=== PATIENT | female | born 2000 | race Caucasian/White ===

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

== ENCOUNTER 2021-03-09 11:52 | Outpatient (REF) | payer BC, SELFPAY ==
[2021-03-09 14:00] LABS: Abs Immature Grans 0.12 10^3/uL (0.0-0.06); Absolute Eosinophil Count 0.15 10^3/uL (0.0-0.7); Absolute Lymphocyte Count 1.96 10^3/uL (1.2-3.4); Basophils % 0.3; Eosinophils % 1.3; HCT 40.3 % (36.0-46.0); HGB 12.6 g/dL (11.2-15.7); Lymphocytes % 16.8; MCH 26.7 pg (27.0-33.0); MCHC 31.3 % (32.0-36.0); MCV 85.4 fL (80-95); MPV 11.5 fL (8.0-11.0); Neutrophils % 74.6; Nucleated RBC 0 %; Platelet Count 256 10^3/uL (130-400); RBC 4.72 10^6/uL (3.93-5.22); RDW 13.3 % (11.7-14.6); RDW-SD 42.2 fL; WBC 11.69 10^3/uL (4.4-10.8)
[2021-03-09 14:01] LABS: Absolute Basophil Count 0.04 10^3/uL (0.0-0.2); Absolute Neutrophil Count 8.72 10^3/uL (1.2-6.7)
[2021-03-09 14:08] LABS: Mono Screening Negative (Negative)
[2021-03-10 15:45] LABS: COVID-19 RT-PCR UVMMC Result Negative (Negative)
== END 2021-03-09 11:53 | disposition home or self-care (01) ==
LOC: LBN 11:52
PROVIDERS: PCP Nurse Practitioner Pediatrics; Visit Provider Family Medicine
DX: J02.9 Acute pharyngitis, unspecified (principal); Z20.822 Contact with and (suspected) exposure to COVID-19
CPT/HCPCS: U0003; 85025; 86308

== ENCOUNTER 2021-10-16 18:31 | Outpatient (REF) | payer BC, SELFPAY ==
[2021-10-18 14:48] LABS: COVID-19 RT-PCR UVMMC Result Negative (Negative)
== END 2021-10-16 18:32 | disposition home or self-care (01) ==
LOC: LBN 18:31
PROVIDERS: PCP Nurse Practitioner Pediatrics; Visit Provider Physician Assistant Medical
DX: Z20.822 Contact with and (suspected) exposure to COVID-19 (principal); J06.9 Acute upper respiratory infection, unspecified
CPT/HCPCS: U0003

== ENCOUNTER 2021-10-28 17:48 | Outpatient (REF) | payer BC, SELFPAY ==
[2021-10-30 10:39] LABS: COVID-19 RT-PCR UVMMC Result Negative (Negative)
== END 2021-10-28 17:49 | disposition home or self-care (01) ==
LOC: LBN 17:48
PROVIDERS: PCP Nurse Practitioner Pediatrics; Visit Provider Physician Assistant Medical
DX: Z20.822 Contact with and (suspected) exposure to COVID-19 (principal); R05.8 Other specified cough
CPT/HCPCS: U0003

== ENCOUNTER → 2023-08-07 12:40 | Outpatient (CLI) | payer OTHER, SELFPAY ==
--- NOTE | 2023-08-07 | DI.RAD_ITS ---
Exam(s) XR SHOULDER LT COMPLETE 2+V EXAM: XR SHOULDER LT COMPLETE 2+V CLINICAL HISTORY: LT SHOULDER PAIN, M25.512. TECHNIQUE: 2D digital imaging was performed. Three views. COMPARISON: No exams were available for comparison FINDINGS: BONES: No acute fracture is present. No bony destructive lesion is seen. JOINTS: No dislocation present. AC joint is not widened. SOFT TISSUE: Normal. IMPRESSION: Unremarkable radiographs of the left shoulder. DATA REPOSITORY: RADIATION DOSE DELIVERED:
== END ==
PROVIDERS: PCP Nurse Practitioner Family; Visit Provider Nurse Practitioner Family
DX: M25.512 Pain in left shoulder (principal)
CPT/HCPCS: 73030

== ENCOUNTER 2024-01-05 21:59 | Outpatient (REF) | payer OTHER, SELFPAY ==
--- NOTE | 2024-01-05 09:30 | PAPFT_PTH ---
PATIENT: Cyndi Morgan LOC: [facility] U#:[id number] AGE/SX: 23/F ROOM: RE01/05/[address]: Sami Gillette DNP : 2000 BED: DIS: 01/05/2024 SPEC #: [id number] RECD: 01/08/24 12:00 STATUS: BOLIVAR ANDERSON #: [id number] LARRY: 01/05/24 09:[address]: Sami Correa DEPT: [facility] Cytology RECD BY: Estrellita Trotter Tissues: 1 - CX/ENDOCX FOR PAP SMEARS Procedures: PAP THIN PREP/[facility] Screening Comments: [id number]
[2024-01-05 21:18] LABS: HCT 42.1 % (36.0-46.0); HGB 13.5 g/dL (11.2-15.7); MCH 28.4 pg (27.0-33.0); MCHC 32.1 % (32.0-36.0); MCV 88 fL (80-95); MPV 11.3 fL (8.0-11.0); Platelet Count 234 10^3/uL (130-400); RBC 4.76 10^6/uL (3.93-5.22); RDW 13.1 % (11.7-14.6); RDW-SD 42.7 fL; WBC 6.84 10^3/uL (4.4-10.8)
[2024-01-05 21:28] LABS: ALT 62 U/L (14-59); AST 26 U/L (15-37); Albumin 4.5 g/dL (3.4-5.0); Alkaline Phosphatase 68 U/L (46-116); Anion Gap 14.8 mmol/L (3-11); BUN 12 mg/dL (7-18); Bilirubin, Total 0.87 mg/dL (0.2-1.0); CO2 23.2 mmol/L (21.0-32.0); CREATININE 0.8 mg/dL (0.55-1.02); Calcium 9.3 mg/dL (8.5-10.1); Calculated LDL 68 mg/dL (<100); Chloride 104 mmol/L (98-107); Cholesterol 147 mg/dL (<200); Estimated GFR 106.77 (mL/min/1.73m2); Glucose 99 mg/dL (74-106); HDL Cholesterol 32 mg/dL (40-60); Potassium 4.2 mmol/L (3.5-5.1); Sodium 142 mmol/L (136-145); Total Protein 7.7 g/dL (6.4-8.2); Triglyceride 235 mg/dL (<150)
[2024-01-07 12:10] LABS: HIV-1/2 Ag & Ab Screen Negative (Negative)
[2024-01-08 10:06] LABS: Hepatitis C Ab w Rflx HCV PCR Negative (Negative)
[2024-01-09 12:07] LABS: IgA 55 mg/dL (85-499); Interpretation (See Note); Tissue Transglutaminase IgA <4.0 CU (<20.0)
== END 2024-01-05 22:00 | disposition home or self-care (01) ==
LOC: LBN 21:59
PROVIDERS: PCP Nurse Practitioner Family; Visit Provider Nurse Practitioner Family
DX: R19.7 Diarrhea, unspecified (principal); Z11.59 Encounter for screening for other viral diseases; Z13.220 Encounter for screening for lipoid disorders; Z11.4 Encounter for screening for human immunodeficiency virus [HIV]
CPT/HCPCS: 80053; 80061; 82784; 83516; 85027; 86803; 87389; 88142

== ENCOUNTER 2024-03-22 10:33 | Day surgery (SDC) | payer OTHER, SELFPAY ==
--- NOTE | 2024-03-21 15:31 | ENDO_ITS ---
Date of service: 03/22/24 Time of Service: 12:30 Endoscopy Report DATE OF PROCEDURE: 03/22/24 PRE-OP DIAGNOSIS: Gluten sensitivity POST-OP DIAGNOSIS: same ANESTHESIA TYPE: General:No Airway ESTIMATED BLOOD LOSS: 1 PATHOLOGY: other COMPLICATIONS: None DISPOSITION: observation PROCEDURE DESCRIPTION: Informed consent was obtained from the pt; explaining the benefits and Risks: bleeding, infections, perforations {which could require surgery or antibiotics and prolonged hospital stay}, or ostomy, and complications of anaesthesia, yanet aspiration). The patient was take to the procedure room and placed in a supine position. Monitors were applied and a time out was done. The patients name, date of , procedure type, allergies to medications and metal in their body was reviewed. A bite block was placed and the patient was sedated. Once sedated and comfortable an Olympus gastroscope (see RN notes for scope #) was advanced through the oropharynx which was grossly normal, and passed into the esophagus. The proximal and mid-esophagus were normal. The distal esophagus does not show any: dilation/strictures/varices/erosions or ulcers/bleeding noted. The scope was advanced into the stomach and through the pylorus into the proximal jejunum. A bx is taken for celiac Dx . The duodenum was noted to be normal. Biopsies were done of the duodenal bulb.. The scope was retracted back into the stomach and biopsies were taken of the antrum. There were no gastritis/gastropathy/ ulcers/masses noted. The scope was retroflexed. The cardia and fundus were noted to be normal. There is no hiatal hernia noted. The scope was retracted back into the esophagus and biopsies were done of the GE junction (in all 4 quadrants) and distal esophagus (2cm above the GE junction) to rule out Morrison's. All specimens are retrieved and no bleeding was noted. The Z line was regular. The GE junction was at 38 cm. The scope was removed and the patient was woken up and taken back to [facility] in stable condition.
--- NOTE | 2024-03-21 15:32 | PDOC.DSDIS_ITS ---
Date of service: 03/22/24 Time of Service: 12:15 Discharge Plan Disposition Patient Disposition: Home Condition: Good Discharge Details Reason For Visit: stomach scope Attending Provider: Nolvia Armenta Primary Care Provider: Sami Correa Home Meds and New Rx's Prescriptions: No Action medroxyprogesterone [Depo-Provera] 150 mg/mL suspension 150 mg IM [id number] escitalopram oxalate [Lexapro] 20 mg tablet 20 mg PO DAILY Qty: 90 3RF lamotrigine 25 mg tablet 50 mg PO DAILY Qty: 180 4RF Rx Instructions: start with 25 mg po qd x 2 weeks, then increase to 50 mg po qd bupropion HCl 100 mg tablet 100 mg PO BID Qty: 60 0RF Discharge Instructions Additional Instructions: Post EGD Instruction ?You had anesthesia for your EGD/stomach scope today.? For your safety, please do the following for the next twenty-four (24) hours: Do Not operate a motor vehicle (car, truck, motorcycle, etc.) Do Not drink alcoholic beverages or use any recreational drugs for the first 24 hours or while taking pain medications. The medications in your body may have a reaction that can be dangerous. Do Not make any important decisions or sign any important papers You have just had a gastroscopy (EGD) or upper GI tract examination. It is important for your smooth recovery that you carefully follow the recommendations below. Do not hesitate to call if any questions should arise about your anesthesia, condition, or care. -Symptoms you may experience during the next 24 hours: ?1. Mild abdominal pain or excessive gas or a bloated feeling which improves with rest, liquids, eating? slightly, and walking as tolerated. 2. Drowsiness and/or forgetfulness because of the medications you were given. 3. A sore throat which you can treat with throat lozenges or by gargling with salt water 4-5 times a day. 4. Redness at the site of your IV which you can treat with warm compresses. SPECIAL INSTRUCTIONS: 1. You may resume your previous diet in one hour. We recommend a light meal to start, then progress as tolerated. 2. Restart regular medications in one hour. 3. No aspirin or non-steroidal containing medication for 24 hrs. 4. No lifting over 20 pounds or strenuous activity for the first 24 hours after your procedure. After 24 hours there are no restrictions on your activity, but you may feel fatigued for a few days. -Findings: Grossly normal on inspection today My office will send you a letter in 2 to 3 weeks time with the results of the biopsy -Continue to follow lifestyle modifications: No alcohol, tobacco products, Aspirin or NSAID's (ibuprofen, Motrin, Naprosyn, aleve, etc).? Try to limit/avoid:? soda pop/any carbonated beverages, caffeine (including tea & chocolate), and acidic foods, (tomatoes, citrus, onions, peppermints) spicy or fried/fatty foods. Do not lie down for 30 minutes after eating, and do not eat 2 hours prior to bedtime. Avoid wearing tight fitting clothing/ belts. Call the office at [phone] (Office) or [phone] (Hospital), or go to the ER right away if you notice any of the followin. Vomiting blood and /or ?coffee ground? material. ?2. Worsening of abdominal pain or cramping. ?3. Trouble with breathing, cough, and/or fever (temperature above 101.5 F). 4. Increasing pain with swallowing. ?5. Chest pain. 6. Any new symptoms. 7. Worsening of the redness at the IV site Stand Alone Forms: Anesthesia Discharge InstMedina Roldan (DSU) Activity:: see above Diet:: see above Discharge Orders Discharge Orders: Discharge Order (Routine); Ordered 03/22/24 Ordered By: Nolvia Armenta DS: Diagnosis Discharge Diagnosis (1) Anxiety and depression: Status: Chronic (2) Gluten-sensitive enteropathy: Status: Acute Asessment and Plan: Patient is seen and examined after they are endoscopy.? Patient has minimal sore throat.? They have been able to tolerate liquids.? They do not have any nausea vomiting.? They are not having any chest pain or shortness of breath.? They have been able to pass gas and are not having any abdominal pain or distention.? They have not vomited any blood.? The vital signs have been stable-see nursing notes. We discussed findings on their endoscopy. We reviewed the importance of lifestyle modification-see discharge instructions We reviewed any new medications that the patient may be prescribed-see discharge instructions Patient will either be sent a letter with the biopsy results or follow-up in the office-see discharge instructions. Patient was given explicit instructions to follow-up regarding post endoscopy- refer to discharge Patient verbalized understanding and discharged in stable and satisfactory condition.? See nursing notes. (3) Abdominal pain: Status: Acute (4) Immunoglobulin A deficiency: Status: Acute (5) Early satiety: Status: Acute
--- NOTE | 2024-03-21 17:12 | W.ANESPRE ---
General Info Date of Service Date Performed: 03/22/24 Height: 5 ft 6 in Weight: 102.767 kg Body Mass Index (BMI): 36.6 Surgical Procedure: Operation Date: 03/22/24 11:35 Proposed Procedure Side Surgeon p Gastroscopy Nolvia Armenta, DO Meds Allergies and Home Medications Allergies Allergy/AdvReac Type Severity Reaction Status Date / Time No Known Allergies Allergy Verified 03/22/24 11:16 Home Medication ?Medication ?Instructions ?Recorded medroxyprogesterone 150 mg/mL 150 mg IM [id number] 12/20/18 intramuscular suspension (Depo-Provera) escitalopram oxalate 20 mg tablet 20 mg PO DAILY #90 tabs 04/28/23 (Lexapro) lamotrigine 25 mg tablet 50 mg (2 x 25 mg) PO DAILY #180 04/28/23 tabs bupropion HCl 100 mg tablet 100 mg PO BID #60 tabs 02/12/24 Current Visit Medications: Current Medications Generic Name Dose Route Start Last Admin Trade Name Freq PRN Reason Stop Dose Admin Hyoscyamine Sulfate 0.125 mg 03/22/24 03:20 Hyoscyamine 0.125 Mg Sl/Oral/Chew SL 04/21/24 03:19 DIRECTED PRN IV Miscellaneous Supplies 1 each 03/22/24 06:00 Iv Access IV 04/20/24 23:59 DIRECTED CHARO Ondansetron HCl 4 mg 03/22/24 03:20 Ondansetron 4 Mg/2 Ml Vial IVP 04/21/24 03:19 Q4H PRN PRN Nausea / Vomiting Sodium Chloride 0 ml 03/22/24 06:00 Normal Saline Flush 10 Ml Syr IV 04/20/24 23:59 PRN PRN Sodium Chloride 0 ml 03/22/24 06:00 Normal Saline 10 Ml Vial IJ 04/20/24 23:59 DIRECTED PRN Sterile Water 0 ml 03/22/24 06:00 Water,Injection,Sterile 10 Ml Vial IJ 04/20/24 23:59 DIRECTED PRN PFSH Active Problems Active Problems: Problem Status Onset Code Abdominal pain Acute R10.9 Gluten-sensitive enteropathy Acute K90.41 Immunoglobulin A deficiency Acute D80.2 Early satiety Acute R68.81 Anxiety and depression Chronic F41.9, F32.9 Medical History Medical History Suicidal ideation passive SI currently; safety plan in place; in contact with her counselor Poli Dixon as needed Vision problems wears glasses and is followed by Patricia for eye care Chronic dental pain Surgical History Surgical History [place] teeth extracted Tobacco Smoking/Tobacco Use Status: Never Passive smoking exposure: No Alcohol Alcohol Intake: current Alcohol intake frequency: a few times a month Substance Use Substance use: Never Substance use type: does not use Vital Signs and Lab Results Vital Signs Most Recent Vital Signs in EMR: Temp Pulse Resp BP Pulse Ox 36.6 C 99 H 17 147/94 H 99 03/22/24 11:08 03/22/24 11:08 03/22/24 11:08 03/22/24 11:08 03/22/24 11:08 Lab Results Blood Type / Crossmatch: No Data to Display Complete Blood Count: No Data to Display Complete Metabolic Panel: No Data to Display Liver Function Panel: No Data to Display Coagulation Panel: No Data to Display Cardiac Panel: No Data to Display Arterial Blood Gas: No Data to Display Venous Blood Gas: No Data to Display Pancreas Panel: No Data to Display Thyroid Panel: No Data to Display Infectious Disease: No Data to Display Blood Cultures: No Data to Display Toxicology Panel: No Data to Display Panel: No Data to Display Anesthesia Assessment and Plan Anesthesia History Personal History: No History of Anesthesia Complications Family History: No Family History of Anesthesia Complications Exercise Tolerance Exercise Tolerance: Metabolic Equivalents>4 Cardiac & Pulmonary Exam Cardiac Exam: Normal S1/S2 Heart Sounds Pulmonary Exam: Clear Bilateral Breath Sounds Implantable Cardiac Device Does patient have a Pacemaker or an ICD?: No Airway Exam Known Difficult Airway: No Mallampati Class: 3 Mouth Opening: Normal (> 3cm) Thyromental Distance: Less than 3 cm Neck Range of Motion: Full ROM Neck Circumference: Normal Teeth Condition: Normal Dentition ASA Classification ASA Score: ASA 2 Emergency Case?: No NPO Status NPO Status: NPO Clears >2 hours, Solids >8 hours Status Status: Negative HCG Anesthesia Plan Resuscitation Status: Full Code Anesthesia Technique: General Anesthesia Airway Planned: Natural Airway Monitors Used: Standard Monitors Preoperative Comments:: 23 yo female for EGD. sig PMHx: anxiety/depression. never smoker, occ EtOH.
[2024-03-22 11:08] VITALS: BP 147/94; PULSE 99; RESP 17; TEMP 36.6; O2SAT 99
[2024-03-22 11:18] VITALS: BMI 36.6
[2024-03-22] MEDS: Normal Saline Flush 10 ML SYR IV (11:34)
--- NOTE | 2024-03-22 11:46 | STOM_PTH ---
PATIENT: Cyndi Morgan LOC: [facility] U#:[id number] AGE/SX: 23/F ROOM: RE03/22/[address]: Nolvia Armenta : 2000 BED: DIS: 03/22/2024 SPEC #: [id number] RECD: 03/22/24 12:57 STATUS: BOLIVAR RE #: [id number] LARRY: 03/22/24 11:[address]: Nolvia Armenta DEPT: Surgical Specimen RECD BY: Tram Danielson ENTERED: 03/22/24 12:58 SP TYPE: STOMACH OTHR DR: Sami Gillette, DAISY Tissues: 1 - BIOPSY BOWEL 2 - BIOPSY BOWEL 3 - STOMACH BIOPSY 4 - STOMACH BIOPSY 5 - ESOPHAGUS BIOPSY 6 - ESOPHAGUS BIOPSY Procedures: GROSS AND MICRO LEVEL 4 Comments: [id number]
[2024-03-22 12:00] VITALS: BP 144/92; PULSE 119; RESP 16; TEMP 36.3; O2SAT 97
--- NOTE | 2024-03-22 12:15 | W.ANESPOSTOP ---
Postoperative Evaluation Date, Time and Location Date Performed: 03/22/24 Time Performed: 12:15 Patient Location: Day Surgery Unit Vital Signs Most Recent Imported Vital Signs: Most Recent Vital Signs Temp Pulse Resp BP Pulse Ox 36.3 C L 119 H 16 144/92 H 97 03/22/24 12:00 03/22/24 12:00 03/22/24 12:00 03/22/24 12:00 03/22/24 12:00 Pain Score Most Recent Pain Score: Most Recent Pain Score Pain Level 0 03/22/24 12:00 Assessment Mental Status: Awake (Alert & Oriented to Patient Baseline) Airway and Respiratory Function: Patent airway with normal (patient baseline) respiratory exam Cardiovascular Function: Hemodynamically Stable Hydration Status: Adequately Hydrated Nausea & Vomiting: No Nausea or Vomiting Pain: Pt. Denies Any Pain Peripheral Nerve Block: Patient did not receive a nerve block
[2024-03-22 12:31] VITALS: BP 120/82; PULSE 92; RESP 14; TEMP 36.3; O2SAT 99
== END 2024-03-22 12:58 | disposition home or self-care (01) ==
LOC: SUR 10:35
PROVIDERS: PCP Nurse Practitioner Family; Visit Provider Surgery
PROC: 0DJ68ZZ Inspection of Stomach, Via Natural or Artificial Opening Endoscopic (ICD-10-PCS; CPT 43235; principal; 2024-03-22 11:30)
DX: K90.41 Non-celiac gluten sensitivity; R10.9 Unspecified abdominal pain; R19.7 Diarrhea, unspecified; K29.80 Duodenitis without bleeding; K20.80 Other esophagitis without bleeding
CPT/HCPCS: 43239; 81025; 88305; J2250; J2405; J2704

== ENCOUNTER 2024-07-15 01:05 | Outpatient (CLI) | payer OTHER, SELFPAY ==
--- NOTE | 2024-07-15 07:15 | DI.RAD_ITS ---
Exam(s) XR CERVICAL SPINE COMP 4-5V EXAM: XR CERVICAL SPINE COMP 4-5V CLINICAL HISTORY: chronic neck pain,m54.2. TECHNIQUE: 2D digital imaging was performed. COMPARISON: No exams were available for comparison FINDINGS: Five views No evidence of fracture, listhesis, nor offset of the spinal laminar line. All of the disc spaces ex hibit normal height. There is no facet arthropathy. No cervical ribs. No Luschka joint osteophytes evident on the oblique views. Bone density normal. No osseous lesions. IMPRESSION: No significant radiographic findings on these five views of the cervical spine. DATA REPOSITORY: RADIATION DOSE DELIVERED:
== END 2024-07-15 01:25 ==
LOC: DI 01:06
PROVIDERS: PCP Nurse Practitioner Family; Visit Provider Nurse Practitioner Family
DX: M54.2 Cervicalgia (principal); G89.29 Other chronic pain
CPT/HCPCS: 72050

== ENCOUNTER 2024-08-02 00:08 | Outpatient (CLI) | payer OTHER, SELFPAY ==
--- NOTE | 2024-08-02 07:15 | DI.MRI_ITS ---
Exam(s) MR CERVICAL SPINE WO EXAM: MR CERVICAL SPINE WO CLINICAL HISTORY: cervical radiculopathy, chronic cervicalgia,M54.12 TECHNIQUE: Multiplanar multisequence MRI of the cervical spine was performed without intravenous con trast. COMPARISON: CR XR CERVICAL SPINE COMP 4-5V from 07/15/2024 FINDINGS: BONES: Vertebral body heights are maintained. Intervertebral disc spaces are normal. Alignment is nor mal. Bone marrow signal intensity is within normal limits. CERVICAL CORD: Craniovertebral junction is unremarkable. The cervical cord is normal size and signal intensity. SOFT TISSUES: Unremarkable. C2-3: No disc herniation or bulge is identified. No significant central spinal canal or neural forami nal stenosis. C3-4: No disc herniation or bulge is identified. There is prominence of the uncovertebral joint on th e left causing [id number] left neural foraminal stenosis. No central spinal canal or right meri ral foraminal stenosis is present. C4-5: No disc herniation or bulge is identified. No significant central spinal canal or neural forami nal stenosis. C5-6: No disc herniation or bulge is identified. No significant central spinal canal or neural forami nal stenosis C6-7: There is a small central and slightly left paracentral disc herniation. No nerve root compress ion, central spinal canal or neural foraminal stenosis is seen. C7-T1: No disc herniation or bulge is identified. No significant central spinal canal or neural tawny inal stenosis IMPRESSION: 1. Degenerative changes of the left uncovertebral joints at C3-C4 causing [id number] left neura l foraminal stenosis. 2. Small central and slightly left paracentral disc herniation at C6-C7. No nerve root compression, central spinal canal or neural foraminal stenosis is present. DATA REPOSITORY:
== END 2024-08-02 00:28 ==
LOC: DI 00:08
PROVIDERS: PCP Nurse Practitioner Family; Visit Provider Nurse Practitioner Family
DX: M50.021 Cervical disc disorder at C4-C5 level with myelopathy (principal); M99.61 Osseous and subluxation stenosis of intervertebral foramina of cervical region
CPT/HCPCS: 72141

== ENCOUNTER 2024-08-28 07:50 | Outpatient (CLI) | payer OTHER, SELFPAY ==
--- NOTE | 2024-08-28 07:58 | PDOC.PAIN ---
Date of service: 08/28/24 Time of Service: 08:39 Pain Managment Procedure Note Procedure Note Procedure Note: CERVICAL EPIDURAL STEROID INJECTION ? Pre-procedure Diagnosis: M54.12- Radiculopathy, cervical region ? Post-procedure Diagnosis:? The same as above ? Sedation:? ? none ? Medication: Depo-Medrol 80 mg, Omnipaque 1 mL ? Estimated blood loss:? less than 2 cc ? Surgeon:? Vinod Valladares MD Comment: C6-7: There is a small central and slightly left paracentral disc herniation. ? Procedure Detail:? The procedure and potential risks were explained to the patient and informed written consent was obtained. The patient was escorted to the procedure room and placed in the prone position. Pillows were utilized for proper positioning and comfort. Time out was performed in the procedure room with nursing staff confirming the patient's identity, procedure to be performed, allergies, and any blood thinning or anti-platelet medications.? The patient's neck and upper back was prepped with ChloraPrep and draped in a sterile fashion. Sterile technique was maintained throughout the procedure.? Sterile gloves were used, a face mask was worn, and new single dose vials of all medications were used with the top being swabbed with alcohol and given time to dry prior to withdrawal of medication. Lidocaine 1% was used to anesthetize the skin. Using a 25-gauge 1.5 inch needle, 1% lidocaine was instilled into the superficial soft tissue overlying the targeted area to provide local anesthesia. With fluoroscopic guidance, a 17 -gauge Tuohy needle was advanced toward the interlaminar space of C7-T1. The needle was then advance through the ligamentum flavum and into the posterior epidural space using the loss of resistance technique. Correct needle placement was confirmed through review of the AP and contralateral oblique fluoroscopic views. A 19-gauge Arrow catheter was threaded cephalad to the Left C6 Following negative aspiration, one cc of Omnipaque 240 contrast was injected which confirmed good flow throughout the epidural space and no evidence of vascular flow or flow into adjacent compartments. Next, following negative aspiration, 1 cc's of normal saline and 80mg of Depo-Medrol was injected. The needle and catheter were gently removed intact. The patient tolerated the procedure well and was transported to the recovery area for observation and discharge instructions. Permanent images saved and recorded. Plan:? Follow up PRN. PAIN PRE PROCEDURE 07/22 POST PROCEDURE 05/24 COMMENT: repeat if she get significant long lasting relief 3-6 months Coding Conscious Sedation used for procedure: No CPT Codes: Inj Spine C/T w/Imaging - [id number] ([id number] ~G) Additional Codes: Date of Service (06594) Date of service: 08/28/24
[2024-08-28 08:00] VITALS: BP 121/89; PULSE 90; RESP 20; TEMP 36.6; O2SAT 98
[2024-08-28 08:22] VITALS: PULSE 95; O2SAT 99
[2024-08-28 08:30] VITALS: PULSE 87; O2SAT 99
--- NOTE | 2024-08-28 08:39 | DI.RAD_ITS ---
Exam(s) XR PAIN CLINIC CERVICAL SP 2V EXAM: XR PAIN CLINIC CERVICAL SP 2V CLINICAL HISTORY: Dx: Cervical Radiculopathy TECHNIQUE: 2D and realtime digital imaging was performed. Radiologist not present. CONTRAST MATERIAL: None. COMPARISON: No exams were available for comparison FINDINGS: Fluoroscopy was provided for pain management therapy. C7-T1 epidural steroid injection Please refer to procedure report or details. Radiation Exposure Index: Ka,r=3.47 mGy IMPRESSION: As above. RADIATION DOSE DELIVERED:
[2024-08-28] MEDS: Epidural Tray 1 EACH MC (08:40)
[2024-08-28] MEDS: Omnipaque 240 MG/ML 50 ML BTL IJ (08:40)
[2024-08-28] MEDS: methylPREDNISolone ACETATE 40 MG/ML VIAL IJ (08:41)
== END 2024-08-28 07:51 | disposition home or self-care (01) ==
LOC: PC 07:51
PROVIDERS: PCP Nurse Practitioner Family; Visit Provider Anesthesiology Pain Medicine
DX: M54.12 Radiculopathy, cervical region (principal)
CPT/HCPCS: 62321; 72040; J1010; Q9967

== ENCOUNTER 2025-03-10 03:22 | Outpatient (CLI) | payer OTHER, SELFPAY ==
--- NOTE | 2025-03-10 06:30 | DI.MRI_ITS ---
Exam(s) MR BRAIN WO EXAM: MR BRAIN WO CLINICAL HISTORY: neuropathy,g62.9,? demyelinating disease TECHNIQUE: Multiplanar multisequence MRI of the brain was performed. COMPARISON: No exams were available for comparison FINDINGS: VENTRICLES AND EXTRA AXIAL SPACES: Normal in size and morphology for the patient's age. MIDLINE SHIFT: None. CEREBRAL PARENCHYMA: No focus of restricted diffusion to suggest acute infarct. No space-occupying lesion identified. HEMORRHAGE: None. BRAINSTEM/CEREBELLUM: Normal. CALVARIUM: Normal. VISUALIZED PARANASAL SINUSES/MASTOIDS:There is a mucous retention cyst in the left maxillary sinus. [place]: Normal flow void. PITUITARY GLAND: Unremarkable. OTHER FINDINGS: None. IMPRESSION: Unremarkable MRI of the brain. DATA REPOSITORY:
== END 2025-03-10 03:42 ==
LOC: DI 03:22
PROVIDERS: PCP Nurse Practitioner Family; Visit Provider Nurse Practitioner Family
DX: G62.9 Polyneuropathy, unspecified (principal)
CPT/HCPCS: 70551